=== PATIENT | male | born 1985 | race Caucasian/White ===

== ENCOUNTER 2024-09-24 14:09 | Emergency (ER) | payer SELFPAY ==
[2024-09-24] MEDS ORDERED: cefTRIAXone (ROCEPHIN) 1 GM VIAL ONE (14:49)
[2024-09-24] MEDS ORDERED: Sterile Water 10 ML ONE (14:49)
[2024-09-24] MEDS ORDERED: traMADol HCl 50 MG TAB ONE (14:50)
== END 2024-09-24 15:00 | disposition home or self-care (01) ==
LOC: BURERS 14:09
DX: K04.7 Periapical abscess without sinus (principal); F17.210 Nicotine dependence, cigarettes, uncomplicated
CPT/HCPCS: 96372; 99283; J0696